=== PATIENT | male | born 1970 | race Caucasian/White ===

== ENCOUNTER 2017-07-15 00:35 | Emergency (ER) | payer OTHER ==
[2017-07-15] MEDS: IBUPROFEN 600 MG TAB PO (01:15)
== END 2017-07-15 02:54 | disposition home or self-care (01) ==
LOC: FTE 00:35
DX: S82.434A Nondisplaced oblique fracture of shaft of right fibula, initial encounter for closed fracture (principal); S82.54XA Nondisplaced fracture of medial malleolus of right tibia, initial encounter for closed fracture; X58.XXXA Exposure to other specified factors, initial encounter; Y92.9 Unspecified place or not applicable
CPT/HCPCS: 73610; 73610-RT; 99283-25